=== PATIENT | female | born 1955 | race Caucasian/White ===

== ENCOUNTER 2019-01-08 08:56 | Day surgery (SDC) | payer BC ==
[2019-01-08 09:13] VITALS: BMI 25.7
[2019-01-08] MEDS ORDERED: LIDOCAINE HCL 1%, 10 MG/ML (20ML VIAL) ONE (11:22)
[2019-01-08] MEDS ORDERED: BUPIVACAINE HCL/PF 0.5% (5 MG/ML) 30 ML VIAL IJ ONE (11:22)
--- NOTE | 2019-01-08 11:35 | HP ---
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
[2019-01-08] MEDS ORDERED: MIDAZOLAM HCL 2 MG/2 ML SINGLE DOSE VIAL ONE (11:41)
[2019-01-08] MEDS ORDERED: BUPIVACAINE HCL/PF 0.5% (5MG/ML) 10 ML VIAL IJ ONE ×3 (12:10)
[2019-01-08] MEDS ORDERED: LIDOCAINE HCL 1%, 10 MG/ML (20ML VIAL) NR ONE ×3 (12:10)
[2019-01-08] MEDS ORDERED: ONDANSETRON 4 MG/2 ML VIAL IVPUSH PRN (12:17)
[2019-01-08] MEDS ORDERED: oxyCODONE HCL 5 MG TABLET PO PRN ×2 (12:17)
[2019-01-08] MEDS ORDERED: ACETAMINOPHEN 325 MG TABLET (FP) PO PRN (12:17)
[2019-01-08] MEDS ORDERED: LACTATED RINGERS SOLUTION 1,000 ML IV SCH (12:30)
[2019-01-08] MEDS ORDERED: BENZOIN TINCTURE SWABSTICK TP ONE (12:37)
--- NOTE | 2019-01-08 12:58 | OP ---
Operative Note - Note: Operative Date: 01/08/19 Pre-Operative Diagnosis: lipoma of right posterior shoulder Operation: excision of lipoma of right posterior shoulder Findings: recurrent lipoma Post-Operative Diagnosis: Same as Pre-op Surgeon: Arnaldo Barakat Anesthesiologist/SKIVER HEEL TAP: Carmelita Fields Anesthesia: Local, MAC Specimens Removed: lipoma Estimated Blood Loss (mls): 5
[2019-01-08] MEDS ORDERED: ACETAMINOPHEN 325 MG TABLET (FP) PO ONE (14:30)
[2019-01-08 16:44] VITALS: BP 120/78; PULSE 62; TEMP 98.4
--- NOTE | 2019-01-12 12:29 | OP ---
DATE OF OPERATION: 01/08/2019 PREOPERATIVE DIAGNOSIS: Lipoma of the right posterior shoulder. POSTOPERATIVE DIAGNOSIS: Lipoma of the right posterior shoulder. PROCEDURE: Excision of lipoma of right posterior shoulder. SURGEON: Arnaldo Barakat MD ANESTHESIA: Local with IV sedation. OPERATIVE FINDINGS: A recurrent lipoma at the site of a previous excision in the posterior shoulder. The lipoma was approximately 4 cm in greatest dimension, and there was scarring from the previous excision, and the rest of the findings are unremarkable. DESCRIPTION OF PROCEDURE: The patient was placed on the operating table in left lateral decubitus position, and the area over the palpable abnormality that had been previously marked was prepped with ChloraPrep and draped in sterile fashion. Timeout was taken, and then an incision mapped out and the area infiltrated with 1% Xylocaine, 0.5% Marcaine in equal concentration. Incision was made with a scalpel and taken down through skin and subcutaneous tissue, and then using blunt dissection, the lipoma was completely mobilized down to its origin of the musculature of the back over the scapula. The pedicle was identified, clamped, and the lipoma excised and sent for pathological examination. The pedicle was ligated with 3-0 Vicryl suture. Hemostasis was checked for, noted to be good, and the wound was copiously irrigated with sterile saline. Hemostasis was again verified, and then the deep fascia closed with interrupted 2-0 Vicryl, the deep dermis with interrupted 3-0 Vicryl, and the skin edges with 4-0 Monocryl in subcuticular continuous fashion. Steri-Strips and gauze dressings and Tegaderm were placed and the procedure terminated at this point. The patient transferred to the postanesthesia care unit in stable condition, awake and alert. ESTIMATED BLOOD LOSS: 5 mL, replaced with crystalloid. DRAINS: None. SPECIMENS: Lipoma to Pathology. I, Arnaldo Barakat MD, was physically present in the operating room from the time the patient was placed on the operating table until she was transferred to the postanesthesia care unit in [facility]. MD BENJI Tol[place]/[id number] MTDD
--- NOTE | 2019-01-12 17:00 | PATH ---
Surgical Pathology Report Patient Name: RONALDO ANDRADE [facility]. Rec. #: [id number] /Age/Gender: 1955 (Age: 63) / F Account: [id number] Location: [facility] SURGICAL Taken: 01/08/2019 Received: 01/09/2019 Reported: 01/12/2019 Physicians: Arnaldo Barakat MD Specimen(s) Received LIPOMA OF THE BACK Clinical History Right back excision of recurrent lipoma Final Diagnosis LIPOMA OF THE BACK, EXCISION: MATURE ADIPOSE TISSUE, CONSISTENT WITH LIPOMA. Electronically Signed Fany Kirkpatrick M.D. Gross Description Received in formalin labeled "lipoma of the back," is a 5.5 x 2.0 x 1.5 cm hill-yellow portion of soft tissue. Sectioning reveals hill-yellow homogeneous adipose tissue. No hemorrhage, discoloration, or necrosis identified. [employer] sections are submitted in 6 cassettes DL/01/09/2019 saudi/01/09/2019
== END 2019-01-08 17:15 | disposition home or self-care (01) ==
LOC: JASU-SURG 08:56
PROVIDERS: ATTEND Surgery
PROC: 0JBD0ZZ Excision of Right Upper Arm Subcutaneous Tissue and Fascia, Open Approach (ICD-10-PCS; principal; 2019-01-08 10:30)
DX: D17.79 Benign lipomatous neoplasm of other sites (principal)
CPT/HCPCS: 88304-TC